=== PATIENT | male | born 1970 | race Caucasian/White ===

== ENCOUNTER 2017-11-01 11:16 | Emergency (ER) | payer OTHER ==
[2017-11-01 11:28] VITALS: BMI 22.8
[2017-11-01] MEDS ORDERED: Oxycodone/Acetaminophen 5/325 mg Tab PO STA (11:35)
[2017-11-01 11:36] VITALS: PULSE 113; RESP 20; TEMP 97.8; O2SAT 98
[2017-11-01 11:39] VITALS: BP 113/86
--- NOTE | 2017-11-01 11:47 | ED PDOC ---
Arrival/HPI - General Time Seen by Provider: 11/01/17 11:28 Historian: Patient - History of Present Illness Narrative History of Present Illness (Text): 11/01/17 11:44 47yo male with no PMHx who present to ED with complaint of sharp right sided ribs pain since yesterday. States pain is worse with deep inspiration. He states he took his 's Naprosyn last night and this morning with mild relieve. He states he is not sure if he injured the area. Denies cough, chest pain, dizziness, calf pain, LE edema, any other complaint. Past Medical History - Provider Review Nursing Documentation Reviewed: Yes - Infectious Disease Hx of Infectious Diseases: None - Psychiatric Hx Psychophysiologic Disorder: No Hx Substance Use: No - Anesthesia Hx Anesthesia: No Hx Anesthesia Reactions: No Hx Malignant Hyperthermia: No - Suicidal Assessment Feels Threatened In Home Enviroment: No Family/Social History - Physician Review Nursing Documentation Reviewed: Yes Family/Social History: Unknown Family HX Smoking Status: Heavy Smoker > 10 Cigarettes Daily Hx Alcohol Use: Yes Hx Substance Use: No Allergies/Home Meds Allergies/Adverse Reactions: Allergies No Known Allergies Allergy (Verified 08/12/16 15:22) Review of Systems - Physician Review All systems were reviewed & negative as marked: Yes - Review of Systems Constitutional: Normal Eyes: Normal ENT: Normal Respiratory: Normal Cardiovascular: Normal Gastrointestinal: Normal Genitourinary Male: Normal Musculoskeletal: Arthralgias (Right side ribs pain) Skin: Normal Neurological: Normal Endocrine: Normal Hemo/Lymphatic: Normal Psychiatric: Normal Physical Exam Vital Signs Reviewed: Yes Vital Signs Temp Pulse Resp BP Pulse Ox 11/01/17 11:38 113/86 11/01/17 11:35 97.8 F 113 H 20 160/105 H 98 Temperature: Afebrile Blood Pressure: Hypertensive Pulse: Tachycardic Respiratory Rate: Normal Appearance: Positive for: Well-Appearing, Non-Toxic, Comfortable Pain Distress: None Mental Status: Positive for: Alert and Oriented X 3 - Systems Exam Head: Present: Atraumatic, Normocephalic Pupils: Present: PERRL Extroacular Muscles: Present: EOMI Conjunctiva: Present: Normal Mouth: Present: Moist Mucous Membranes Neck: Present: Normal Range of Motion Respiratory/Chest: Present: Clear to Auscultation, Good Air Exchange, Tender to Palpation (Right lateral and posterior ribs). No: Respiratory Distress, Accessory Muscle Use, Wheezes, Decreased Breath Sounds, Rales, Retracting, Rhonchi, Tachypneic Cardiovascular: Present: Regular Rate and Rhythm, Normal S1, S2. No: Murmurs Abdomen: Present: Normal Bowel Sounds. No: Tenderness, Distention, Peritoneal Signs Back: Present: Normal Inspection Upper Extremity: Present: Normal Inspection. No: Cyanosis, Edema Lower Extremity: Present: Normal Inspection. No: Edema Neurological: Present: GCS=15, CN II-XII Intact, Speech Normal Skin: Present: Warm, Dry, Normal Color. No: Rashes Psychiatric: Present: Alert, Oriented x 3, Normal Insight, Normal Concentration Medical Decision Making ED Course and Treatment: 11/01/17 13:24 Right ribs/chest xray - Minimal displaced 9th rib fracture. No PTX Pt dc home with percocet for pain control. He already have Naprosyn and was advised to continue with it. referred to his PMD/clinic. Spirometry given. - RAD Interpretation Radiology Orders: 11/01/17 11:35 RIBS RIGHT & PA CHEST [RAD] Stat - Medication Orders Current Medication Orders: Discontinued Medications Oxycodone/Acetaminophen (Percocet 5/325 Mg Tab) 1 tab PO STAT STA Stop: 11/01/17 11:36 Last Admin: 11/01/17 12:10 Dose: 1 tab MAR Pain Assessment Document 11/01/17 12:10 HI (Rec: 11/01/17 12:28 HI [id number]) Pain Reassessment Is this a pain reassessment? No Sleep Is patient sleeping during reassessment? No Presence of Pain Presence of Pain Yes Pain Scale Used Pain Scale Used Numeric Location Left, Right or Bilateral Right Upper or Lower Upper Pain Location Body Site Abdomen Description Description Constant Intensity of Pain at present 8 Acceptable Level of Pain 2 Pain Behavior Facial Grimacing Disposition/Present on Arrival - Present on Arrival Any Indicators Present on Arrival: No History of DVT/PE: No History of Uncontrolled Diabetes: No Urinary Catheter: No History Surgical Site Infection Following: None - Disposition Have Diagnosis and Disposition been Completed?: Yes Diagnosis: Rib fracture Disposition: HOME/ ROUTINE Disposition Time: 13:30 Patient Plan: Discharge Condition: STABLE Discharge Instructions (ExitCare): Rib Fracture (DC), Rib Fractures in Adults Additional Instructions: Take medication as directed Follow up with your doctor/Clinic Return to ED for any new or worsening symptoms Prescriptions: oxyCODONE/Acetaminophen [Percocet 5/325 mg Tab] 1 tab PO Q6 #7 tab Referrals: Mirna Tirado, [Non-Staff] - Follow up with primary
--- NOTE | 2017-11-01 13:23 | RAD ---
PROCEDURE: Radiographs of the Chest and Right Ribs. HISTORY: ribs pain COMPARISON: None available. TECHNIQUE: Frontal radiograph of the chest and multiple oblique radiographs of the right ribs were obtained. FINDINGS: RIGHT RIBS: There is a minimally displaced fracture of the lateral right 9th rib LUNGS: Clear. PLEURA: No pneumothorax or pleural fluid. CARDIOVASCULAR: Normal sized heart. No pulmonary vascular congestion. OTHER FINDINGS: None. IMPRESSION: There is a minimally displaced fracture of the lateral right 9th rib
== END 2017-11-01 13:49 | disposition home or self-care (01) ==
LOC: ED 11:16
DX: S22.31XA Fracture of one rib, right side, initial encounter for closed fracture (principal); X58.XXXA Exposure to other specified factors, initial encounter; F17.210 Nicotine dependence, cigarettes, uncomplicated

== ENCOUNTER 2017-11-07 14:10 | Emergency (ER) | payer OTHER ==
[2017-11-07 14:11] VITALS: BMI 22.8
--- NOTE | 2017-11-07 14:39 | ED PDOC ---
Arrival/HPI - General Time Seen by Provider: 11/07/17 14:37 Historian: Patient - History of Present Illness Narrative History of Present Illness (Text): 11/07/17 14:39 47 y/o male, pmh including rt 9th rib fracture diagnosed about 6 days ago in the ER, psychiatric history including alcohol abuse, nkda, c/o rt. sided rib pain which has not resolved. Pt. stated that he injured it about 1 week ago but not sure how, seen in the ER 6 days ago and here today because the pain has not resolved, pain has not change in characteristic or severity, still have the painkiller percocet from the last visit, no shortness of breath or palpitation , no rash, no night sweat, no other medical or psychological complaints. Past Medical History - Provider Review Nursing Documentation Reviewed: Yes - Infectious Disease Hx of Infectious Diseases: None - Psychiatric Hx Psychophysiologic Disorder: No Hx Substance Use: No - Anesthesia Hx Anesthesia: No Hx Anesthesia Reactions: No Hx Malignant Hyperthermia: No - Suicidal Assessment Feels Threatened In Home Enviroment: No Family/Social History - Physician Review Nursing Documentation Reviewed: Yes Family/Social History: Unknown Family HX Smoking Status: Heavy Smoker > 10 Cigarettes Daily Hx Alcohol Use: Yes Hx Substance Use: No Allergies/Home Meds Allergies/Adverse Reactions: Allergies No Known Allergies Allergy (Verified 08/12/16 15:22) Review of Systems - Review of Systems Constitutional: absent: Fatigue, Fevers Eyes: absent: Vision Changes ENT: absent: Hearing Changes Respiratory: absent: SOB, Cough, Sputum Cardiovascular: absent: Chest Pain Gastrointestinal: absent: Abdominal Pain, Nausea, Vomiting Musculoskeletal: Myalgias. absent: Arthralgias, Back Pain, Neck Pain, Joint Swelling Skin: absent: Rash, Pruritis Neurological: absent: Headache, Dizziness Psychiatric: absent: Anxiety, Depression, Suicidal Ideation Physical Exam Vital Signs Temp Pulse Resp BP Pulse Ox 11/07/17 14:55 98.1 F 98 H 18 147/97 H 97 Appearance: Positive for: Well-Appearing, Non-Toxic, Comfortable Pain Distress: Moderate Mental Status: Positive for: Alert and Oriented X 3 - Systems Exam Head: Present: Atraumatic, Normocephalic Pupils: Present: PERRL Extroacular Muscles: Present: EOMI Conjunctiva: Present: Normal Mouth: Present: Moist Mucous Membranes Neck: Present: Normal Range of Motion Respiratory/Chest: Present: Clear to Auscultation, Good Air Exchange, Tender to Palpation (+ttp on the rt. lateral approx. 8-9 rib region with the pain 100% reproducible, no ecchymosis, no laceration or abrasion, no cva tenderness. ). No: Respiratory Distress, Accessory Muscle Use, Wheezes, Decreased Breath Sounds , Rales, Retracting, Rhonchi, Tachypneic Cardiovascular: Present: Regular Rate and Rhythm, Normal S1, S2. No: Murmurs Abdomen: No: Tenderness, Distention, Peritoneal Signs, Rebound, Guarding Back: Present: Normal Inspection. No: Midline Tenderness, Paraspinal Tenderness , Pain with Leg Raise, Decubitus Ulcer Upper Extremity: Present: Normal Inspection. No: Cyanosis, Edema Lower Extremity: Present: Normal Inspection. No: Edema Neurological: Present: GCS=15, Speech Normal, Motor Func Grossly Intact, Gait Normal, Memory Normal Skin: Present: Warm, Dry, Normal Color. No: Rashes Psychiatric: Present: Alert, Oriented x 3, Normal Insight, Normal Concentration Medical Decision Making ED Course and Treatment: 11/07/17 14:49 -toradol/lidoderm -chest xray r/o pneumothorax -incentive spirometer 11/07/17 15:48 -Chest xray ER wet read: no pneumothorax/active disease -Pt. feels much better. -Discharge home with lidoderm patch, incentive spirometer, naproxen, ice compression, follow up with your own pmd and orthopedic/pain management within 2 days, return to the ER for any new or worsening signs or symptoms. - RAD Interpretation Radiology Orders: 11/07/17 14:45 CHEST TWO VIEWS (PA/LAT) [RAD] Stat HISTORY: rt. 9th rib fracture x 6 days, pain, r/o pneumo COMPARISON: No prior. TECHNIQUE: Chest PA and lateral FINDINGS: LUNGS: No active pulmonary disease. PLEURA: No significant pleural effusion identified. No pneumothorax apparent. CARDIOVASCULAR: Normal. OSSEOUS STRUCTURES: No significant abnormalities. VISUALIZED UPPER ABDOMEN: Normal. OTHER FINDINGS: None. IMPRESSION: No active disease. Commodity Supervisor: Radiologist - Medication Orders Current Medication Orders: Discontinued Medications Ketorolac Tromethamine (Toradol) 60 mg IM STAT STA Stop: 11/07/17 14:46 Last Admin: 04/08/18 15:08 Dose: 60 mg MAR Pain Assessment Document 11/07/17 15:08 EQ (Rec: 11/07/17 15:08 EQ [id number]) Pain Reassessment Is this a pain reassessment? No Sleep Is patient sleeping during reassessment? No Presence of Pain Presence of Pain Yes Pain Scale Used Pain Scale Used Numeric IM Administration Charges Document 11/07/17 15:08 EQ (Rec: 11/07/17 15:08 EQ [id number]) Charges for Administration # of IM Administrations 1 Lidocaine (Lidoderm) 1 ea TD STAT STA Stop: 11/07/17 14:46 Last Admin: 11/07/17 15:07 Dose: 1 ea MAR Transdermal Patch Site Document 11/07/17 15:07 EQ (Rec: 11/07/17 15:08 EQ [id number]) Transdermal Patch Site Transdermal Patch Site Right Lower Back - PA / ASSISTANT FITNESS MANAGER / Resident Statement MD/DO has reviewed & agrees with the documentation as recorded. Disposition/Present on Arrival - Present on Arrival Any Indicators Present on Arrival: No History of DVT/PE: No History of Uncontrolled Diabetes: No Urinary Catheter: No History of Decub. Ulcer: No History Surgical Site Infection Following: None - Disposition Have Diagnosis and Disposition been Completed?: Yes Diagnosis: Rib fracture, Rib pain Disposition: HOME/ ROUTINE Disposition Time: 14:51 Patient Plan: Discharge Patient Problems: Current Active Problems Problem Status Onset Rib fracture Acute Rib pain Acute Condition: IMPROVED Additional Instructions: -Discharge home with lidoderm patch, incentive spirometer, naproxen, ice compression, follow up with your own pmd and orthopedic/pain management within 2 days, return to the ER for any new or worsening signs or symptoms. Prescriptions: Lidocaine 5% [Lidoderm] 1 patch TP DAILY PRN #14 patch PRN Reason: Other Naproxen 500 mg PO BID PRN #30 tablet PRN Reason: other Referrals: Gavino Hunter MD [Staff Provider] - Follow up with primary [facility] [Outside] - Follow up with primary Forms: WORK NOTE
[2017-11-07] MEDS ORDERED: Lidocaine 5% Patch TD STA (14:45)
[2017-11-07 14:56] VITALS: RESP 18; TEMP 98.1
--- NOTE | 2017-11-07 16:19 | RAD ---
HISTORY: rt. 9th rib fracture x 6 days, pain, r/o pneumo COMPARISON: No prior. TECHNIQUE: Chest PA and lateral FINDINGS: LUNGS: No active pulmonary disease. PLEURA: No significant pleural effusion identified. No pneumothorax apparent. CARDIOVASCULAR: Normal. OSSEOUS STRUCTURES: No significant abnormalities. VISUALIZED UPPER ABDOMEN: Normal. OTHER FINDINGS: None. IMPRESSION: No active disease.
[2017-11-07 16:23] VITALS: BP 128/72; PULSE 76; O2SAT 99
== END 2017-11-07 16:22 | disposition home or self-care (01) ==
LOC: ED 14:10
DX: S22.31XD Fracture of one rib, right side, subsequent encounter for fracture with routine healing (principal); X58.XXXD Exposure to other specified factors, subsequent encounter
CPT/HCPCS: 71046; 96372; 99283; J1885

== ENCOUNTER 2018-05-17 10:19 | Emergency (ER) | payer OTHER ==
[2018-05-17 10:37] VITALS: RESP 18; O2SAT 99
[2018-05-17 10:43] VITALS: BMI 23.3
--- NOTE | 2018-05-17 10:58 | ED PDOC ---
Arrival/HPI - General Chief Complaint: Back Pain Time Seen by Provider: 05/17/18 10:24 Historian: Patient - History of Present Illness Narrative History of Present Illness (Text): 05/17/18 10:48 47 year old male, whose past medical history includes 9th rib fracture in October, who presents to the emergency department complaining of aching right sided rib pain and right lower back pain, exacerbated after lifting something heavy last week. Patient states his ribs were fractured 6 months ago and notes recurring pain on right side and knees, with associated trembling. Patient denies any recent falls, or any other complaints. Time/Duration: < week (patient notes pain worse last week) Symptom Onset: Gradual Symptom Course: Unchanged Quality: Aching (patient notes aching right sided rib pain and right lower back pain ) Context: Home Past Medical History - Provider Review Nursing Documentation Reviewed: Yes - Infectious Disease Hx of Infectious Diseases: None - Psychiatric Hx Psychophysiologic Disorder: No Hx Substance Use: No - Anesthesia Hx Anesthesia: No Hx Anesthesia Reactions: No Hx Malignant Hyperthermia: No - Suicidal Assessment Feels Threatened In Home Enviroment: No Family/Social History - Physician Review Nursing Documentation Reviewed: Yes Family/Social History: No Known Family HX Smoking Status: Heavy Smoker > 10 Cigarettes Daily Hx Alcohol Use: Yes Hx Substance Use: No Allergies/Home Meds Allergies/Adverse Reactions: Allergies No Known Allergies Allergy (Verified 08/12/16 15:22) Review of Systems - Physician Review All systems were reviewed & negative as marked: Yes - Review of Systems Musculoskeletal: Back Pain (patient notes right lower back pain), Other (patient notes right sided rib pain). absent: Normal Physical Exam Vital Signs Reviewed: Yes Vital Signs Temp Pulse Resp BP Pulse Ox 05/17/18 10:36 98.7 F 95 H 18 157/98 H 99 Temperature: Afebrile Blood Pressure: Hypertensive (at 157/98) Pulse: Tachycardic (at 95) Respiratory Rate: Normal Appearance: Positive for: Well-Appearing, Non-Toxic Pain Distress: Mild Mental Status: Positive for: Alert and Oriented X 3 - Systems Exam Head: Present: Atraumatic, Normocephalic Pupils: Present: PERRL Extroacular Muscles: Present: EOMI Conjunctiva: Present: Normal Mouth: Present: Moist Mucous Membranes Neck: Present: Normal Range of Motion Respiratory/Chest: Present: Clear to Auscultation, Good Air Exchange. No: Respiratory Distress, Accessory Muscle Use Cardiovascular: Present: Regular Rate and Rhythm, Normal S1, S2. No: Murmurs Abdomen: No: Tenderness, Distention, Peritoneal Signs Back: Present: Normal Inspection, Paraspinal Tenderness. No: Midline Tenderness Upper Extremity: Present: Normal Inspection. No: Cyanosis, Edema Lower Extremity: Present: Normal Inspection. No: Edema Neurological: Present: GCS=15, CN II-XII Intact, Speech Normal Skin: Present: Warm, Dry, Normal Color. No: Rashes Psychiatric: Present: Alert, Oriented x 3, Normal Insight, Normal Concentration Medical Decision Making ED Course and Treatment: 05/17/18 10:48 Impression: 47 year old male presents to the Emergency department for right sided rib pain and right lower back pain, worse last week s/p exacerbation after lifting something heavy last week. Differential Diagnosis included but are not limited to: Plan: -- Toradol 30 mg IM -- X-ray of right ribs and PA chest -- Reassess and disposition Prior Visits: Notes and results from previous visits were reviewed. Patient was last seen in the emergency department on 11/17/17 c/o rt. sided rib pain which was unresolved after being diagnosed with a 9th rib fracture about 6 days prior in Emergency department. Patient was discharged home in improved condition, with instructions for care. Progress Notes: 05/17/18 16:18 xr neg no indication for lower back xr as no trauma. no fall neuro intact no saddle anestheisa. staedy gait. - RAD Interpretation Narrative RAD Interpretations (Text): X-ray of ribs reviewed by radiologist, shows: Dictator : Angel Luis Ibanez MD Report Date : 05/17/2018 12:19:37 FINDINGS: RIGHT RIBS: No fracture or focal lesion visualized. LUNGS: Clear. PLEURA: No pneumothorax or pleural fluid. CARDIOVASCULAR: Normal sized heart. No pulmonary vascular congestion. OTHER FINDINGS: None. IMPRESSION: Unremarkable radiographs of the chest and right ribs. No right rib fracture. Radiology Orders: 05/17/18 10:48 RIBS RIGHT & PA CHEST [RAD] Stat Peace Officer: Radiologist - Medication Orders Current Medication Orders: Discontinued Medications Ketorolac Tromethamine (Toradol) 30 mg IM STAT STA Stop: 05/17/18 10:49 - Scribe Statement The provider has reviewed the documentation as recorded by the Rachelibmiguelina Pantoja All medical record entries made by the Jose De Jesus were at my direction and personally dictated by me. I have reviewed the chart and agree that the record accurately reflects my personal performance of the history, physical exam, medical decision making, and the department course for this patient. I have also personally directed, reviewed, and agree with the discharge instructions and disposition. Disposition/Present on Arrival - Present on Arrival Any Indicators Present on Arrival: No History of DVT/PE: No History of Uncontrolled Diabetes: No Urinary Catheter: No History of Decub. Ulcer: No History Surgical Site Infection Following: None - Disposition Have Diagnosis and Disposition been Completed?: Yes Diagnosis: Rib pain, Back pain Disposition: HOME/ ROUTINE Disposition Time: 01:00 Condition: STABLE Discharge Instructions (ExitCare): Low Back Pain (DC), Chest Pain (ED) Prescriptions: RX: Naproxen 500 mg PO BID PRN #14 tab PRN Reason: Pain, Mild (1-3) Referrals: Gaston Donaldson MD [Primary Care Provider] - Follow up with primary Forms: [employer] (Yakut), WORK NOTE
--- NOTE | 2018-05-17 12:23 | RAD ---
Date of service: 05/17/2018 PROCEDURE: Radiographs of the Chest and Right Ribs. HISTORY: chronic rib pain h/o of old fracture COMPARISON: None available. TECHNIQUE: Frontal radiograph of the chest and multiple oblique radiographs of the right ribs were obtained. FINDINGS: RIGHT RIBS: No fracture or focal lesion visualized. LUNGS: Clear. PLEURA: No pneumothorax or pleural fluid. CARDIOVASCULAR: Normal sized heart. No pulmonary vascular congestion. OTHER FINDINGS: None. IMPRESSION: Unremarkable radiographs of the chest and right ribs. No right rib fracture.
[2018-05-17 13:08] VITALS: BP 142/87; PULSE 87; TEMP 98.9
== END 2018-05-17 13:05 | disposition home or self-care (01) ==
LOC: ED 10:19
DX: R07.9 Chest pain, unspecified (principal); M54.5 Low back pain; Z87.81 Personal history of (healed) traumatic fracture
CPT/HCPCS: 71101; 96372; 99283; J1885